=== PATIENT | female | born 1935 | race Caucasian/White ===

== ENCOUNTER 2021-04-11 21:41 | Observation (INO) | payer MEDICARE, BC ==
--- NOTE | 2021-04-11 22:17 | EDM.PDOC ---
ED HPI GENERAL MEDICAL PROBLEM - General Chief Complaint: Exposure to Heat or Cold Stated Complaint: MEDICAL VIA NORTH Time Seen by Provider: 04/11/21 21:50 Source of Information: Reports: Patient, EMS History Limitations: Reports: No Limitations - History of Present Illness INITIAL COMMENTS - FREE TEXT/NARRATIVE: 85-year-old female who is still living independently, has had some recent dementia issues and confusion so the family put in a camera system to keep an eye on her. Tonight she was not being visualized on the camera so they sent out a well person check, and found her kneeling in her driveway. She was exposed to the cold for up to 1 to 1-1/2 hours. According to the patient she went outside and fell on the ice and rocks onto her knees, and did not feel she could get up. She has frostbite conditions to the bilateral anterior knees over the patellas, and some early frostbite changes of the fingers bilaterally. The only pain complaint she is having is her knees. No shortness of breath, nausea or vomiting, head injury, neck or back pain. Onset: Unknown/Unsure (Patient may have been outside for as much as 1 to 2 hours) Location: Reports: Upper Extremity, Left, Upper Extremity, Right, Lower Extremity, Left, Lower Extremity, Right Associated Symptoms: Reports: Confusion (She is at her baseline) bilateral knees Pain Score (Numeric/FACES): 3 - Related Data Allergies Allergy/AdvReac Type Severity Reaction Status Date / Time No Known Allergies Allergy Verified 04/11/21 22:58 Home Meds: Home Meds Levothyroxine [Synthroid] 100 mcg PO ACBREAKFAST 04/11/21 [History] Montelukast [Singulair] 10 mg PO DAILY 04/11/21 [History] amLODIPine [Norvasc] 5 mg PO DAILY 04/11/21 [History] atorvaSTATin [Lipitor] 10 mg PO DAILY 04/11/21 [History] hydroCHLOROthiazide [Hydrochlorothiazide] 25 mg PO DAILY 04/11/21 [History] ED ROS GENERAL - Review of Systems Review Of Systems: See Below Constitutional: Denies: Fever, Chills HEENT: Reports: No Symptoms Respiratory: Denies: Shortness of Breath Cardiovascular: Denies: Chest Pain GI/Abdominal: Reports: No Symptoms : Reports: No Symptoms Musculoskeletal: Reports: Other (Bilateral knee pain) Skin: Reports: Other (Tenderness, erythema and early blistering of the knees, some slight swelling of the fingers) Neurological: Reports: Confusion. Denies: Dizziness, Syncope, Difficulty Walking, Weakness, Gait Disturbance Psychiatric: Reports: Confusion ED EXAM, GENERAL - Physical Exam Exam: See Below Exam Limited By: No Limitations General Appearance: Alert, No Apparent Distress, Other (Patient was treated by EMS and warmed in route, she is very stable) Eye Exam: Bilateral Eye: Normal Inspection Head: Atraumatic Neck: Supple, Non-Tender Respiratory/Chest: Lungs Clear Cardiovascular: Regular Rate, Rhythm, Tachycardia GI/Abdominal: Soft, Non-Tender Back Exam: Normal Inspection Extremities: Other (Erythema and slight blistering of the anterior knees bilaterally, no bony tenderness or joint pain with stressing of the joint. Some slight duskiness and pallor of the fingers, a few early blister formation but sensation intact) Neurological: Alert, Oriented, Other (Mild decrease sensation to the fingertips bilaterally) Psychiatric: Normal Affect, Normal Mood Course - Vital Signs Last Recorded V/S: Last Vital Signs Temp 97.8 F 04/12/21 01:39 Pulse 104 H 04/12/21 01:39 Resp 18 04/12/21 01:39 BP 152/68 H 04/12/21 01:39 Pulse Ox 92 L 04/12/21 01:39 - Orders/Labs/Meds Orders: Active Orders 24 hr Category Date Time Status Isolation [COMM] Stat Oth 04/11/21 21:53 Ordered Medication Orders Acetaminophen (Acetaminophen 325 Mg Tab) 650 mg PO Q4H PRN PRN Reason: Pain Amlodipine Besylate (Amlodipine 5 Mg Tab) 5 mg PO DAILY [facility] Atorvastatin Calcium (Atorvastatin 10 Mg Tab) 10 mg PO DAILY [facility] Hydrochlorothiazide (Hydrochlorothiazide 25 Mg Tab) 25 mg PO DAILY [facility] Influenza Virus Vaccine (Flu Vacc [id number](65yr Up)/Pf 240 Mcg/0.7 Ml Syringe) 240 mcg IM .ONCE ONE Stop: 04/12/21 10:01 Levothyroxine Sodium (Levothyroxine 100 Mcg Tab) 100 mcg PO ACBREAKFAST [facility] Montelukast Sodium (Montelukast 10 Mg Tab) 10 mg PO DAILY [facility] Labs: Laboratory Tests 04/11/21 04/11/21 04/11/21 Range/Units 21:59 21:59 22:39 WBC 18.9 H (4.5-11.0) K/uL RBC 4.71 (3.30-5.50) M/uL Hgb 13.6 (12.0-15.0) g/dL Hct 42.3 (36.0-48.0) % MCV 90 (80-98) fL MCH 29 (27-31) pg MCHC 32 (32-36) % Plt Count 298 (150-400) K/uL Neut % (Auto) 84.9 H (36-66) % Lymph % (Auto) 6.1 L (24-44) % [place] % (Auto) 8.8 H (2-6) % Eos % (Auto) 0.1 L (2-4) % Baso % (Auto) 0.1 (0-1) % Sodium 136 L (140-148) mmol/L Potassium 4.5 (3.6-5.2) mmol/L Chloride 98 L (100-108) mmol/L Carbon Dioxide 31 (21-32) mmol/L Anion Gap 11.5 (5.0-14.0) mmol/L BUN 18 (7-18) mg/dL Creatinine 0.7 (0.6-1.0) mg/dL Est Cr Clr Drug Dosing TNP Estimated GFR (MDRD) > 60 (>60) Glucose 126 H (74-106) mg/dL Calcium 8.9 (8.5-10.1) mg/dL Total Bilirubin 0.4 (0.2-1.0) mg/dL AST 26 (15-37) U/L ALT 18 (12-78) U/L Alkaline Phosphatase 75 (46-116) U/L Creatine Kinase 115 (26-192) U/L Total Protein 6.6 (6.4-8.2) g/dL Albumin 3.3 L (3.4-5.0) g/dL Globulin 3.3 (2.3-3.5) g/dL Albumin/Globulin Ratio 1.0 L (1.2-2.2) Influenza Type A RNA Negative (NEGATIVE) RSV RNA (INAAT) Negative (NEGATIVE) Influenza Type B RNA Negative (NEGATIVE) SARS-CoV-2 RNA (PABLO) Negative (NEGATIVE) Meds: Medications Generic Name Dose Route Start Last Admin Trade Name Freq PRN Reason Stop Dose Admin Acetaminophen 650 mg 04/12/21 00:40 Acetaminophen 325 Mg Tab PO Q4H PRN Pain Amlodipine Besylate 5 mg 04/12/21 09:00 Amlodipine 5 Mg Tab PO DAILY [facility] Atorvastatin Calcium 10 mg 04/12/21 09:00 Atorvastatin 10 Mg Tab PO DAILY [facility] Hydrochlorothiazide 25 mg 04/12/21 09:00 Hydrochlorothiazide 25 Mg Tab PO DAILY [facility] Influenza Virus Vaccine 240 mcg 04/12/21 10:00 Flu Vacc [id number](65yr Up)/Pf 240 Mcg/0.7 Ml Syringe IM 04/12/21 10:01 .ONCE ONE Levothyroxine Sodium 100 mcg 04/12/21 07:30 Levothyroxine 100 Mcg Tab PO ACBREAKFAST [facility] Montelukast Sodium 10 mg 04/12/21 09:00 Montelukast 10 Mg Tab PO DAILY [facility] Discontinued Medications Generic Name Dose Route Start Last Admin Trade Name Mehrdad PRN Reason Stop Dose Admin Influenza Virus Vaccine 1 each 04/12/21 10:00 Pharmacy To Dose - Influenza Vaccine IM 04/12/21 10:01 ONETIME ONE - Re-Assessments/Exams Free Text/Narrative Re-Assessment/Exam: 04/11/21 22:43 Attempted to remove her wedding ring from her hand but it was unable to go around the inflamed arthritic joint of the ring finger. There was still good space between the finger and ring and she wanted to leave it on for now. CBC CMP and CK were obtained and patient was continued to be covered with warmth. Her daughter arrived and is willing to care for her. 04/11/21 22:54 White count returned elevated but hemoglobin is normal, her entire chemistry panel is reassuring and CK is normal. Patient and her daughter were agreeable to possibly going home if she can ambulate without difficulty, but she was very unsteady. I think she needs monitoring tonight, recheck a CK in the morning and reassess her keller bite on the knees and hands prior to discharge. Dr. Pryor he was contacted for admission. Departure - Departure Time of Disposition: 23:38 Disposition: Admitted As Inpatient 65 Clinical Impression: Frostbite of both hands Superficial frostbite of knee or lower leg Qualifiers: Encounter type: initial encounter Laterality: unspecified laterality Qualified Code(s): T33.70XA - Superficial frostbite of unspecified knee and lower leg, initial encounter - Discharge Information Sepsis Event Note (ED) - Evaluation Sepsis Screening Result: No Definite Risk - Focused Exam Vital Signs: Vital Signs Temp Pulse Resp BP Pulse Ox 04/11/21 21:55 98.2 F 113 H 19 149/64 H 93 L 04/11/21 21:50 98.2 F 113 H 19 149/64 H 93 L - My Orders Last 24 Hours: My Active Orders 04/11/21 21:53 Isolation [COMM] Stat - Assessment/Plan Last 24 Hours: My Active Orders 04/11/21 21:53 Isolation [COMM] Stat
[2021-04-11 23:18] LABS: CORONAVIRUS COVID-19 NAA NEGATIVE (NEGATIVE)
[2021-04-12] MEDS ORDERED: Acetaminophen 325 MG Tab PO PRN (00:40)
--- NOTE | 2021-04-12 04:51 | HP ---
IDENTIFYING DATA: Darya Yao is an 85-year-old female from [place], [place]. CHIEF COMPLAINT: Found by family members following a fall outdoors this evening with suggestion of early frostbite changes. HISTORY OF PRESENT ILLNESS: Elderly, female who lives alone in [place], has a noted history of periods of mild confusion and memory loss suggesting early dementia. Family has arranged for supportive therapies, checking on her routinely. She does have housekeeping and house cleaning services provided. She continues to prepare limited meals, primarily microwaving food, and no longer drives with friends and associates providing transportation. With concerns over her independent status, the family has elected to place security cameras in the residence, and when she was not known to be visible within the household, her daughter, who was currently in a nearby residence, traveled to Darya's home and found her approximately a quarter mile from her household, wandering outside in a light jacket without boots, gloves, or hat. She reportedly was walking her dog. One of the animals remained at her side. The second had returned to the house. With concerns of hypothermia and frostbite injury, she presented to the emergency room for further evaluation. Records indicate a history of asthmatic lung disease, mild and intermittent, essential hypertension, hyperlipidemia, and hypothyroidism. Darya notes mild arthralgias of the hands. Denies other arthritic complaints. She has had 1 fall down the stairs in spring without significant injury sustained. She does have mild unsteadiness reported by her daughter, though she has had no other known falls or injuries. HABITS: Nonsmoker. No alcohol use. Caffeine use is minimal, 1 to 2 cups of coffee daily. VACCINATIONS: Refuses vaccinations including influenza and COVID vaccine. She has not had known active COVID disease. PRIOR SURGERIES: Include hysterectomy in the remote past and repair of an esophageal perforation following an endoscopic procedure. REVIEW OF SYSTEMS: NEUROLOGIC: Memory impairment, suggesting early dementia. Last visit with her primary caregiver was 1-1/2 years ago with question of memory loss having been addressed. Additionally, she has had bilateral cataract disease with cataract extraction and uses reading glasses. Denies significant hearing impairment. No history of strokes or seizures. CARDIAC: Hypertension and hyperlipidemia. Denies coronary artery disease or previous OH. RESPIRATORY: Noted mild intermittent asthmatic lung disease. She has a maintenance inhaler prescribed though reports she uses her inhaler on a p.r.n. basis. Refuses routine vaccinations. GI: No chronic dyspepsia, nausea, or emesis. Bowel movements are regular. She does eat regular meals. Family believes her weight has been stable. : Rises occasionally during the night to void. She denies urinary incontinence. PHYSICAL EXAMINATION: GENERAL: Appearance is that of a somnolent elderly female resting comfortably. She denies current pain after initial complaints of knee pain from cold-related injury. VITALS: On arrival to the emergency room, temperature 98.2 degrees Fahrenheit, pulse 113, respiratory rate 19 with O2 saturation of 93% on room air. Blood pressure 149/64. HEENT: Able to engage in conversation with hearing apparently satisfactory. Extraocular eye movements are symmetrical. No facial asymmetry is noted. Speech is clear. NECK: Brisk carotid pulses. No bruits. No thyromegaly. LUNGS: Symmetrical, clear, resonant, and non-tachypneic. HEART: Regular, without murmurs or gallops being heard. ABDOMEN: Thin, soft, and nondistended. No organomegaly. Active sounds. Good femoral pulses. AND RECTAL: Omitted. EXTREMITIES: She has arthritic changes with thickening of the IP joints of the hands. Mild erythema of the fingers and patellar aspects of the knees with soft tissue swelling over the anterior knees also noted. She denies current palpable tenderness. SKIN: Otherwise, intact. No pitting edema. Good arterial pulses at the radial and posterior tibial regions. NEUROLOGIC: Symmetrical strength and movement on the upper and lower extremities. She is not ambulated. Vision and auditory acuity appear to be intact. She does have suggestion of memory loss. Daughter is able to confirm factual medical information. LABORATORY DATA: On admission, WBC elevated at 18.9, hemoglobin 13.6, hematocrit 42.3, platelet count 298,000. Sodium 136, potassium 4.5, BUN 18, creatinine 0.7, GFR greater than 60, glucose 126 in a nonfasting state, calcium 8.9, alkaline phosphatase 75, AST 26. Nasal smear for influenza, RSV, and COVID noted to be negative or normal. CK is within normal range at 115. IMPRESSION: 1. Cold exposure tonight following a fall outdoors with suggestion of minor cold-related tissue injuries of the fingers and anterior knees. 2. Cognitive impairment, chronic, progressive by family's report with suggestion of Alzheimer dementia. 3. Medical history notable for chronic hypertension, hyperlipidemia, intermittent asthmatic lung disease, and hypothyroidism. PLAN: The patient is admitted for observation through the nighttime hours. Her adult daughter will remain at the hospital bedside as well. We will provide Tylenol p.r.n. for complaints of pain from cold-related tissue injury. Watch for signs of blistering secondary to frostbite, which would require dressings with antibacterial ointment and bandages. Provide assistance with ambulation and low-sodium diet as tolerated. We will continue with routine medications and anticipate probable discharge to family's care later today. Would advise outpatient followup with her primary caregiver, at which time evaluation of cognitive state would be in order with likely need for brain imaging and referral to Neuropsychology for more detailed cognitive evaluation. Full code status will be maintained. Provide assistance with ambulation. Julien Pryor MD /[id number]
[2021-04-12] MEDS: Sulfamethoxazole/Trimethoprim 800-160 MG Tab PO SCH (08:27)
[2021-04-12] MEDS: atorvaSTATin 10 MG Tab PO SCH (08:37)
[2021-04-12] MEDS: Hydrochlorothiazide 25 MG Tab PO SCH (08:37)
[2021-04-12] MEDS: amLODIPine 5 MG Tab PO SCH (08:37)
[2021-04-12] MEDS: Levothyroxine 100 MCG Tab PO SCH (08:37)
[2021-04-12] MEDS: Montelukast 10 MG Tab PO SCH (08:37)
--- NOTE | 2021-04-12 22:24 | DISCH ---
IDENTIFYING DATA: This is an 85-year-old female, living independently [place], was admitted for evaluation of potential frostbite injury and general weakness. HOSPITAL COURSE: This 85-year-old female living in her self owned residence, has a noted history by prior medical records of identified mild cognitive impairment and memory loss. Family has arranged housekeeping services as well as provisions for transportation as Darya no longer drives. She prepares limited meals for herself, generally microwaving food. Family checks on her routinely and has security cameras placed about the residence to monitor her activities. On the evening of admission, she was not seen on any of the cameras on the residential property. The daughter, therefore, traveled to her residence and she was found approximately 1/4 mile from the house lying in the snow on a sub-zero night as she had attempted to walk her dogs with only a light jacket and loafer. She had no hat or gloves. She was assisted to the family's vehicle and transported to the emergency room for further evaluation. At the time of arrival in the ER, vital signs were stable. She did not have evidence of hypothermia. She did have suggestion of minor frostbite changes at the tips of the fingers and patellar regions of the knees. Initial labs including CBC, general chemistries, and creatine kinase were reviewed and found to be within normal ranges. She was admitted to observation overnight. She rested comfortably. She denied pain. She had mild erythematous changes of the hands and prepatellar regions, though no blistering or bullous skin changes of more significant frostbite. The following morning, she had no complaints and plans for discharge with family supervision were pursued. It is noted that CK had shown minimal rise to 500. Renal function with creatinine and GFR remained within normal range as were electrolytes and serum glucose. DISCHARGE INSTRUCTIONS: Discharged on 04/12/2021 with supervision and care of family. 1. Low-sodium diet. 2. Activity: Up as tolerated at home. Family members do note mild instability and questionable previous falls, reporting a known fall in spring without significant injury sustained. 3. Request follow up with her primary care physician at [facility] whom she has not seen in one and half years' time since early during the pandemic. 4. Influenza vaccine is provided during hospital stay. The patient has refused COVID vaccination. MEDICATIONS: Continue with regular medications including montelukast 10 mg daily, levothyroxine 100 mcg daily, atorvastatin 10 mg daily, amlodipine 5 mg daily, and hydrochlorothiazide 25 mg daily. The patient does have inhalation therapies for reported mild intermittent asthmatic lung disease. She reports she is using her inhalers on a p.r.n. or rescue basis. Unsure whether this is use of her Ventolin or previously prescribed Advair inhaler. I discussed with her family Darya's increasing memory deficiencies and periods of confusion. Further evaluation as an outpatient including cognitive evaluation by Neuropsychology Services would be in order. They will discuss this with her primary caregiver in outpatient followup. ADMITTING DIAGNOSES: 1. Mild frostbite injuries to the hands and knees. 2. Fall with weakness in an unmonitored setting. 3. Family reports progressive memory loss suggesting mild Alzheimer's dementia. 4. History of hypertension. 5. History of hyperlipidemia. 6. History of hypothyroidism. 7. Mild intermittent asthmatic lung disease, patient denying current limiting symptoms. 8. Refuses COVID vaccination. DISCHARGE DIAGNOSES: 1. Mild frostbite injuries to the hands and knees. 2. Fall with weakness in an unmonitored setting. 3. Family reports progressive memory loss suggesting mild Alzheimer's dementia. 4. History of hypertension. 5. History of hyperlipidemia. 6. History of hypothyroidism. 7. Mild intermittent asthmatic lung disease, patient denying current limiting symptoms. 8. Refuses COVID vaccination. 9. Influenza vaccine administered during hospital stay. /[id number]
== END 2021-04-12 09:18 | disposition home health service (06) ==
LOC: JP.ED 21:41 → JP.MS 23:31
PROVIDERS: ADMIT Family Medicine; ATTEND Family Medicine
DX: T33.71XA Superficial frostbite of right knee and lower leg, initial encounter (principal); T33.522A Superficial frostbite of left hand, initial encounter; T33.521A Superficial frostbite of right hand, initial encounter; T33.72XA Superficial frostbite of left knee and lower leg, initial encounter; G30.9 Alzheimer's disease, unspecified; F02.80 Dementia in other diseases classified elsewhere, unspecified severity, without behavioral disturbance, psychotic disturbance, mood disturbance, and anxiety; R41.0 Disorientation, unspecified; I10 Essential (primary) hypertension; E78.5 Hyperlipidemia, unspecified; J45.909 Unspecified asthma, uncomplicated; G31.84 Mild cognitive impairment of uncertain or unknown etiology; Z23 Encounter for immunization; E03.9 Hypothyroidism, unspecified; Z98.890 Other specified postprocedural states; Z20.822 Contact with and (suspected) exposure to COVID-19
CPT/HCPCS: 0241U; 36415; 80048; 80053; 81001; 82550; 85025; 99285; A9270; G0378